=== PATIENT | female | born 1975 | race Caucasian/White ===

== ENCOUNTER → 2017-10-25 | Outpatient (CLI) | payer OTHER ==
--- NOTE | 2017-10-25 09:43 | US ---
EXAMINATION TYPE: US gallbladder DATE OF EXAM: 10/25/2017 COMPARISON: NONE CLINICAL HISTORY: K57.92 Diverticulitis of intestine. abd pain, patient states cholecystectomy 8 year s ago but recent abd us at [facility] states gb stones were seen. EXAM MEASUREMENTS: Liver Length: 15.3 cm Gallbladder Wall: Surgically absent CBD: 0.5 cm Right Kidney: 9.7 x 4.2 x 4.7 cm Pancreas: non visibility due to bowel gas Liver: LLD and intercostal imaging due to subcostal bowel gas exam limited. Gallbladder: Surgically absent Evidence for sonographic Smith's sign: no CBD: wnl Right Kidney: wnl IMPRESSION: 1. Postcholecystectomy changes.
--- NOTE | 2017-10-25 13:34 | CT ---
EXAMINATION TYPE: CT abdomen pelvis w con DATE OF EXAM: 10/25/2017 COMPARISON: Prior CT abdomen pelvis 11/22/2013 HISTORY: Abd pain CT DLP: 552.1 mGycm Automated exposure control for dose reduction was used. TECHNIQUE: Helical acquisition of images from the lung bases through the pelvis have been completed. CONTRAST: Performed with Oral Contrast and with IV Contrast, patient injected with 100 mL of Omnipaque 300. FINDINGS: LUNG BASES: No significant abnormality is appreciated. AORTA: No significant abnormality is appreciated. LIVER/GB: Gallbladder is absent. Liver shows no mass.. PANCREAS: No significant abnormality is seen. SPLEEN: No significant abnormality is seen. ADRENALS: No significant abnormality is seen. KIDNEYS: No significant abnormality is seen. REPRODUCTIVE ORGANS: Not seen. BOWEL: Large amount of retained fecal debris present within the colon. Patient is post appendectomy. No evident bowel obstruction. Subdural appearance at the superior mesenteric vein tributary noted on axial images 33 through 35 likely present on prior exam and not acute. FREE AIR: No Free Air visible. ASCITES: None visible. PELVIC ADENOPATHY: None visualized. RETROPERITONEAL ADENOPATHY: No Retroperitoneal Adenopathy visible. URINARY BLADDER: No significant abnormality is seen. OSSEOUS STRUCTURES: No significant abnormality is seen. IMPRESSION: POSTOP CHANGES. CORRELATE FOR FECAL STASIS. Additional findings above.
== END | disposition home or self-care (01) ==
LOC: RADUSMAIN 09:00
PROVIDERS: ATTEND Surgery Plastic and Reconstructive Surgery
DX: R10.84 Generalized abdominal pain (principal); Z90.49 Acquired absence of other specified parts of digestive tract
CPT/HCPCS: 76705; 74177; Q9967

== ENCOUNTER → 2017-12-17 | Day surgery (SDC) | payer OTHER ==
[2017-12-14 14:55] VITALS: BMI 25.8
[~2017-12-17] MED LIST: BUPIVACAINE (PF) 0.25% 30 ML VIAL SQ ONE; BUPIVACAINE (PF) 0.5% 30 ML VIAL SQ ONE; DEXAMETHASONE SOD PHOSPHATE 10 MG/ML 1 ML VIAL IV ONE; GLYCOPYRROLATE 0.2 MG/ML 2 ML VIAL ONE; HEPARIN SODIUM,PORCINE 5,000 UNIT/ML 1 ML VIAL SQ ONE; HYDROcodone/APAP 7.5-325MG 1 EACH TAB PO ONE; IBUPROFEN IV 400 MG in SODIUM CHLORIDE 0.9% 250 ML IV ONE; LACTATED RINGERS 1,000 ML IV ONE; LIDOCAINE 1% 20 ML VIAL (10MG/ML) FOR IV START INTRADERMA PRN; LIDOCAINE 1% INJ 10MG/ML (20 ML MDV) ONE; MIDAZOLAM 2 MG/2 ML VIAL IV PRN; MIDAZOLAM 2 MG/2 ML VIAL ONE; MORPHINE SULFATE 4 MG/ML SYRINGE IV PRN; NEOSTIGMINE 1 MG/ML 10 ML VIAL ONE; ONDANSETRON 4 MG/2 ML VIAL IVP ONE; PROPOFOL 10 MG/ML 20 ML VIAL IV ONE; ROCURONIUM BROMIDE 10 MG/ML 10 ML VIAL IV ONE; SCOPOLAMINE 1.5MG/72HR PATCH TRANSDERM ONE; SUCCINYLCHOLINE CHLORIDE 100 MG/5 ML SYR IV ONE; ceFAZolin IN SWFI 2 GM/20 ML SYRINGE IVP ONE; fentaNYL (PF) 50 MCG/ML 2 ML AMP IVP ONE; fentaNYL (PF) 50 MCG/ML 2 ML AMP ONE
--- NOTE | 2017-12-17 05:48 | P.GSHP ---
History of Present Illness H&P Date: 12/17/17 CHIEF COMPLAINT: Inguinal hernia, left. HISTORY OF PRESENT ILLNESS: The patient is a 42-year-old female who presents with a history of swelling and pain along the left groin. She's noted increased swelling including pain of the area. Now she presents for repair of an inguinal hernia. She also reports GERD. PAST MEDICAL HISTORY: Please see list. PAST SURGICAL HISTORY: Please see list. MEDICATIONS: Please see list. ALLERGIES: Please see list. SOCIAL HISTORY: No illicit drug use FAMILY HISTORY: No reports of Crohn disease or ulcerative colitis. REVIEW OF ORGAN SYSTEMS: CONSTITUTIONAL: No reports of fevers or chills. No reports of weight loss despite prior attempts. GI: Denies any blood in stools or constipation. PHYSICAL EXAM: VITAL SIGNS: Stable GENERAL: Well-developed pleasant female in no acute distress. HEENT: No scleral icterus. Extraocular movements grossly intact. Moist buccal mucosa. NECK: Supple without lymphadenopathy. CHEST: Unlabored respirations. Equal bilateral excursions. CARDIOVASCULAR: Regular rate and rhythm. Distal 2+ pulses. ABDOMEN: Soft, nondistended. No peritoneal signs. Palpable swelling of the left groin. MUSCULOSKELETAL: No clubbing, cyanosis, or edema. ASSESSMENT: 1. Inguinal hernia, left 2. GERD. PLAN: 1. Recommend proceeding with a robotic inguinal repair with mesh with possible bilateral approach. 2. Benefits and risks of surgical intervention was discussed including possibility of open technique. 3. DVT prophylaxis. 4. Antibiotic prophylaxis. 5. Upper endoscopy for GERD> Past Medical History Past Medical History: No Reported History Additional Past Medical History / Comment(s): bilat inguinal hernias History of Any Multi-Drug Resistant Organisms: None Reported Past Surgical History: Appendectomy, Cholecystectomy, Hernia Repair, Hysterectomy, Tonsillectomy Additional Past Surgical History / Comment(s): RT INGUINAL HERNIA, RT [facility]KLE SX [facility] Past Anesthesia/Blood Transfusion Reactions: No Reported Reaction, Family History of Problems w/ Anesthesia, Postoperative Nausea & Vomiting (PONV) Additional Past Anesthesia/Blood Transfusion Reaction / Comment(s): SISTER - PONV, FATHER- DIFFICULTY WAKING Smoking Status: Current every day smoker - Past Family History Mother Family Medical History: Hyperlipidemia Additional Family Medical History / Comment(s): MS Father Family Medical History: AICD/Pacemaker, Deep Vein Thrombosis (DVT), Hypertension Additional Family Medical History / Comment(s): KIDNEY STONES, CARDIOMYOPATHY Sister(s) Family Medical History: Cancer Additional Family Medical History / Comment(s): SISTER- CERVICAL/OVARIAN CA Medications and Allergies Home Medications Medication Instructions Recorded Confirmed Type FLUoxetine HCL [PROzac] 20 mg PO DAILY 05/18/16 12/14/17 History Allergies Allergy/AdvReac Type Severity Reaction Status Date / Time Penicillins Allergy Rash/Hives Verified 12/14/17 14:50
[2017-12-17 13:56] VITALS: TEMP 97.7
[2017-12-17] MEDS: LACTATED RINGERS 1,000 ML IV SCH (13:56)
--- NOTE | 2017-12-17 17:16 | P.PCN ---
Date of Procedure: 12/17/17 Preoperative Diagnosis: Recurrent left inguinal hernia, right groin pain, gastroesophageal reflux disease Postoperative Diagnosis: Same, bilateral incarcerated inguinal lipomas, gastritis Procedure(s) Performed: Robotic-assisted bilateral groin exploration, excision of bilateral incarcerated inguinal lipomas direct, lysis of adhesions left lower quadrant, intraoperative EGD Anesthesia: GETA, local Surgeon: Evelina Coleamn Estimated Blood Loss (ml): 5 Pathology: other (Bilateral inguinal lipomas, antrum for gastritis) Condition: stable Disposition: same day Operative Findings: 1. 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 Hill grade 3 lower esophageal valve 3. Chronic gastritis with biopsies obtained 4. Adhesions left lower quadrant lysed
[2017-12-17 18:30] VITALS: RESP 16
[2017-12-17 18:59] VITALS: BP 112/62; PULSE 68
--- NOTE | 2017-12-20 16:01 | P.OP ---
Date of Procedure: 12/17/17 Description of Procedure: Date of Procedure: 12/17/17 SURGEON: EVELINA COLEMAN MD DOCUMENT REVIEW ATTORNEY: HERNANDEZ BOLIVAR PREOPERATIVE DIAGNOSES: 1. History of bilateral inguinal hernias repair 2. Recurrent left inguinal hernia 3. Right groin pain 4. Gastroesophageal reflux disease 5. History of tobacco use POSTOPERATIVE DIAGNOSES: 1. History of bilateral inguinal hernias repair 2. Recurrent left inguinal hernia 3. Right groin pain 4. Gastroesophageal reflux disease 5. History of tobacco use 6. Bilateral incarcerated inguinal lipomas 7. Gastritis, chronic OPERATION: 1. Robotic-assisted bilateral groin exploration 2. Robotic-assisted bilateral groin excision of bilateral incarcerated inguinal lipomas, direct 3. Robotic-assisted lysis of adhesions left lower quadrant, over 20 minutes. 4. Intraoperative EGD with biopsies of the antrum (please separate operative report) ANESTHESIA: General with local anesthetic ESTIMATED BLOOD LOSS: 5 mL. Pathology: other (Bilateral inguinal lipomas, antrum for gastritis) COMPLICATIONS: None. Condition: stable Disposition: same day Operative Findings: 1. Bilateral incarcerating inguinal lipoma via direct inguinal area 2. Hill grade 3 lower esophageal valve 3. Chronic gastritis with biopsies obtained 4. Adhesions left lower quadrant lysed 5. Console time 47 minutes INDICATIONS: The patient is a 42-year-old female who presents with history of bilateral groin hernia repairs now with left-sided swelling and right groin pain Now presents for definitive surgical intervention. Laparoscopic versus open and robotic approaches were discussed. Benefits and risks including bleeding, infection and chronic groin pain were reviewed. Placement of mesh was also described. Informed consent was obtained. DESCRIPTION: In the preoperative area, the patient was marked with indelible marker along the left groin. The patient was brought to the operating room and initially laid in supine position. After general induction, the abdomen had been prepped and draped in standard sterile fashion. Ioban draping was also placed. Prior to incision, a timeout protocol was confirmed with surgical team regarding patient's name including procedures to be performed and location along the left groin. Initial positioning for the robotic assisted ports were selected whereby 20 cm superior to the target anatomy, 0 degree 5 mm laparoscopic trocar entry was performed at the left upper quadrant. The abdomen was insufflated to 15 mmHg which she had tolerated well. Diagnostic laparoscopy demonstrated adhesions at the left lower quadrant with the sigmoid colon was adherent to the left groin. No recurrent bilateral indirect inguinal hernias were identified. A small weakness was identified at the direct inguinal area of the left groin. A fatty tumor was reduced from the right groin at the area of her pain also along the direct inguinal area of the right groin. Next, along the epigastrium, 8 mm robot trocar was placed. An 8-mm robotic trocar was placed under direct visualization at the right upper quadrant. The 5 mm port was exchanged for a 8 mm trocar. All trocars were positioned between 8 to 10-cm apart from each other. The e-Tag Xi robot was primed, draped, prepared for docking along the left side of the patient. I then went to the [employer] console. The physician assistant certified was at bedside for exchange of the robot arms and equipment. Attention was brought to the bilateral groins. Along the left groin, peritoneal adhesions were identified incorporating the greater omentum and addressed using sharp dissection with a scissor and cautery. The sigmoid colon was freed along the left pelvis over 20 one minutes and without colotomies or enterotomies. Along the weakness of the left direct inguinal area, the peritoneum was scored. An incarcerate fatty tumor lipoma was dissected free to the pelvis and excised using vessel sealer. Similarly, the peritoneum was scored along the right direct inguinal area and a fatty tumor was also dissected free and found incarcerated consistent with an incarcerated direct inguinal lipoma. Both inguinal lipomas of the groins were incarcerated and resected. The size of the direct hernia defect bilaterally was 2 cm with intraoperative films obtained. The peritoneal defects of the bilateral groins were oversewn using 2-0 VLOC x 9-inch length sutures. Intraoperative films were obtained. The robot was undocked from the patient's bedside. I then rescrubbed into the case. Insufflation was released from the abdominal cavity and all instruments were removed from the abdominal cavity. The rest of incisions were reapproximated using 4-0 Monocryl in a running subcuticular fashion. Local anesthetic was placed along the incision including for a groin block. Incisions were cleansed using dilute hydrogen peroxide. Dermabond was applied to the skin. I went to the head of the bed to perform intraoperative EGD. Please see separate operative report. At the end of the procedure, the needle, sponge and instrument counts had been verified correct by the surgical instrument maker. The patient had tolerated the procedure well and was taken to the postanesthesia care unit in stable condition. Plan - Discharge Summary New Discharge Prescriptions: New HYDROcodone/APAP 7.5-325MG [[place] 7.5-325] 1 each PO Q4H PRN #20 tab PRN Reason: Pain Omeprazole 40 mg PO DAILY #30 capsule. No Action FLUoxetine HCL [PROzac] 20 mg PO DAILY Discharge Medication List FLUoxetine HCL [PROzac] 20 mg PO DAILY 05/18/16 [History] HYDROcodone/APAP 7.5-325MG [[place] 7.5-325] 1 each PO Q4H PRN #20 tab 12/17/17 [ Rx] Omeprazole 40 mg PO DAILY #30 capsule. 12/17/17 [Rx] Follow up Appointment(s)/Referral(s): Evelina Coleman MD [STAFF PHYSICIAN] - 12/21/17 Patient Instructions/Handouts: *Surgery [facility] - (Anesthesia) Discharge Instructions Outpatient Surgery, Gastritis (GEN), Laparoscopic Herniorrhaphy (DC ) Activity/Diet/Wound Care/Special Instructions: No lifting over 4 pounds in 4 weeks. May shower. No bath tub soaks. Discharge Disposition: HOME SELF-CARE
--- NOTE | 2017-12-20 16:03 | P.PCN ---
Date of Procedure: 12/17/17 Description of Procedure: PREOPERATIVE DIAGNOSIS: Gastroesophageal reflux disease. POSTOPERATIVE DIAGNOSIS: Gastritis. Gastroesophageal reflux disease. OPERATION: Intraoperative esophagogastroduodenoscopy with biopsies along antrum. SURGEON: Evelina Coleman MD ANESTHESIA: GETA INDICATIONS: The patient is a 42-year-old female who presents with a history of reflux disease. Benefits and risks of the procedure were described. Informed consent was obtained. DESCRIPTION: After completion of her abdominal procedure, an Olympus gastroscope was passed along the posterior oropharynx down to the distal esophagus where the squamocolumnar junction was encountered at 40 cm from the incisors. The stomach was entered and bile reflux was found and suctioned from the stomach. Additional findings are listed below. Biopsies with cold forceps were obtained of the antrum. The first through third portion of the duodenum was examined and unremarkable. Retroflexion of the scope confirmed Hill grade 3 lower esophageal valve. The squamocolumnar junction demostrated LA grade A erosive esophagitis. The stomach was desufflated. The patient tolerated the procedure well. FINDINGS: Squamocolumnar junction 40 cm from the incisors. Diaphragmatic hiatus at 40 cm. Hill grade 3 lower esophageal valve. LA grade A erosive esophagitis. No active duodenitis. Chronic gastritis with biopsies obtained RECOMMENDATIONS: Further recommendations pending results of pathology report. Upper endoscopy as needed.
== END | disposition home or self-care (01) ==
LOC: OR 12:24
PROVIDERS: ATTEND Surgery Plastic and Reconstructive Surgery
DX: K40.91 Unilateral inguinal hernia, without obstruction or gangrene, recurrent (principal); D17.1 Benign lipomatous neoplasm of skin and subcutaneous tissue of trunk; K66.0 Peritoneal adhesions (postprocedural) (postinfection); K29.50 Unspecified chronic gastritis without bleeding; K21.0 Gastro-esophageal reflux disease with esophagitis; K22.10 Ulcer of esophagus without bleeding; Z79.899 Other long term (current) drug therapy; Z88.0 Allergy status to penicillin; F17.210 Nicotine dependence, cigarettes, uncomplicated
CPT/HCPCS: 49651; 43239; 88304; 88305; J2250; J1644; J1100; J2710; J2405; J2001; J3010; J0330; J1741; J2704; J0690

== ENCOUNTER 2018-12-05 14:59 | Emergency (ER) | payer OTHER ==
[2018-12-05 15:04] VITALS: RESP 18
[2018-12-05] MEDS ORDERED: ACET/COD 300 MG/30 MG STARTER PACK 6 TAB BTL PO STA (15:52)
--- NOTE | 2018-12-05 16:00 | XR ---
EXAMINATION TYPE: XR wrist complete BILATERAL DATE OF EXAM: 12/05/2018 COMPARISON: NONE HISTORY: Pain TECHNIQUE: Four views submitted. FINDINGS: The osseous structures are intact. The joint spaces are preserved and there is no acute fracture or dislocation. Splint or casting material overlying the right wrist limits its evaluation. There is a l ucency involving the epiphysis of the radius. IMPRESSION: 1. No definite acute fracture involving the left wrist. 2. There is a lucency involving the distal radius on the right. However there appears to be cortical step-off on the lateral view suspicious for hairline a mildly displaced fracture. Correlate for pain along the dorsal surface of the distal radius.
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
[2018-12-05 17:01] VITALS: BP 116/56; PULSE 82; TEMP 99.1
== END 2018-12-05 17:00 | disposition home or self-care (01) ==
LOC: EC 14:59
DX: S52.501A Unspecified fracture of the lower end of right radius, initial encounter for closed fracture (principal); M25.432 Effusion, left wrist; F17.200 Nicotine dependence, unspecified, uncomplicated; Z79.899 Other long term (current) drug therapy; Z88.0 Allergy status to penicillin; Y04.0XXA Assault by unarmed brawl or fight, initial encounter
CPT/HCPCS: 29125; 99284

== ENCOUNTER → 2020-06-06 | Outpatient (CLI) | payer OTHER ==
--- NOTE | 2020-06-06 16:21 | FL ---
EXAMINATION TYPE: FL barium swallow DATE OF EXAM: 06/06/2020 CLINICAL HISTORY: Hiatal hernia. Epigastric pain. TECHNIQUE: A double contrast esophagram is performed utilizing air and barium. A total of 1 minute 17 seconds of fluoroscopic time was utilized during procedure. Total images obtained 8. COMPARISON: None FINDINGS: The esophagus shows normal motility and emptying into the stomach. No evidence of hiatal h ernia or stricture noted. No significant gastroesophageal reflux was seen during real time performanc e of this study. IMPRESSION: No significant abnormality is seen to account for patient's symptoms.
== END | disposition home or self-care (01) ==
LOC: RADUSWWP 10:51
PROVIDERS: ATTEND Surgery Plastic and Reconstructive Surgery
DX: K44.9 Diaphragmatic hernia without obstruction or gangrene (principal)
CPT/HCPCS: 74220